=== PATIENT | male | born 1970 | race Caucasian/White ===

== ENCOUNTER 2017-12-07 08:34 | Inpatient (IN) ==
[2017-12-07] MEDS ORDERED: Ondansetron 4 MG/2 ML VIAL IVP ONE (08:48)
[2017-12-07] MEDS ORDERED: 0.9 % Sodium Chloride 1,000 ML IVC ONE (08:48)
[2017-12-07] MEDS ORDERED: *HR* FentaNYL (PF) 100 MCG/2 ML VIAL IVP ONE ×2 (08:50→10:43)
[2017-12-07] MEDS ORDERED: Pantoprazole 40 MG VIAL IVP ONE (08:52)
--- NOTE | 2017-12-07 08:53 | Emergency Department Note ---
Disposition Clinical Impression: Small bowel obstruction, History of Crohn's disease Abdominal pain Qualifiers: Abdominal location: generalized Qualified Code(s): R10.84 - Generalized abdominal pain Vomiting Qualifiers: Vomiting type: unspecified Vomiting Intractability: unspecified Nausea presence : unspecified Qualified Code(s): R11.10 - Vomiting, unspecified Ventral hernia Qualifiers: Obstruction and gangrene presence: with obstruction but without gangrene Qualified Code(s): K43.6 - Other and unspecified ventral hernia with obstruction , without gangrene Pneumonia Qualifiers: Pneumonia type: due to unspecified organism Laterality: left Lung location: lower lobe of lung Qualified Code(s): J18.1 - Lobar pneumonia, unspecified organism Disposition: Admitted As Inpatient Condition: Fair Referrals: Nelson Olivier MD [Primary Care Provider] - Forms: ED Satisfaction Letter, Work/School Release Time of Disposition: 10:03 Abdominal Pain HPI - General Chief Complaint: ED Abdominal Pain Stated Complaint: ABD/Bladder Pain/Vomiting Blood Time Seen by Provider: 12/07/17 08:38 Source: patient Mode of arrival: ambulatory Limitations: no limitations Nursing Notes Reviewed: Yes Vital Signs Reviewed: Yes - History of Present Illness HPI Narrative: 47-year-old male with history of Crohn's with multiple abdominal surgeries in the remote past presents for evaluation of abdominal pain and vomiting. Patient states he has had a colostomy and has had his entire colon removed. States that symptoms started and a half ago with diffuse abdominal pain. Since in the patient's had progressive nausea and vomiting. Since he has vomited multiple times this morning with blood-tinged emesis. Patient's also complaining of more pronounced lower abdominal "bladder pain". Patient denies any hematuria or dysuria. Patient denies any fevers. Reports decreased ostomy drainage. States that his surgeries were performed down in [place]. Patient does not take any pain medication besides Motrin for the abdominal pain and Crohn's. Pain Scale: 10 - Related Data Home Medications Medication Instructions Recorded Confirmed Albuterol Sulfate [Albuterol 0 puff IH Q4HR 12/07/16 12/07/17 Inhaler] Cyanocobalamin (B-12) [Vitamin B12] 1,000 mcg IM Q15D 12/07/16 12/07/17 Cyclobenzaprine HCl 5 mg PO BID PRN 12/07/16 12/07/17 Ibuprofen [Motrin] 800 mg PO Q8HR PRN 12/07/16 12/07/17 Multivitamin [One Daily Essential] 1 each PO DAILY 12/07/16 12/07/17 Omeprazole [PriLOSEC] 40 mg PO DAILY 12/07/16 12/07/17 Venlafaxine HCl [Venlafaxine HCl] 100 mg PO BID 12/07/17 12/07/17 Allergies Allergy/AdvReac Type Severity Reaction Status Date / Time Penicillins Allergy Hives Verified 12/07/16 12:14 All systems ED: reviewed and negative except as stated. Constitutional: Denies: fever Cardiovascular: Denies: chest pain Respiratory: Denies: cough, dyspnea Gastrointestinal: Reports: abdominal pain, nausea, vomiting Abdominal Pain PMH - Past Medical History Medical history: Reports: COPD, kidney stones, other Male Surgical History: Reports: colostomy, orthopedic, other Psychiatric history: Reports: anxiety - Social History Smoking status: Former smoker Alcohol use: Reports: none Drug use: Reports: none Physical Exam - General Limitations: no limitations General appearance: alert, in no apparent distress - Head Head exam: atraumatic, normocephalic, normal inspection - Eye Eye exam: Present: normal appearance - ENT ENT exam: normal exam, mucous membranes moist - Neck Neck exam: Present: normal inspection - Chest Chest inspection: Present: normal inspection, symmetric chest wall rise - Respiratory Respiratory exam: Present: wheezes. Absent: respiratory distress - Cardiovascular Cardiovascular exam: Present: regular rate, normal rhythm. Absent: systolic murmur - Abdominal Exam Abdominal exam: Present: soft, Non-Tender, hyperactive bowel sounds, other ( Functioning ostomy present). Absent: distention, guarding, rebound - Extremities Exam Extremities exam: Present: normal inspection. Absent: pedal edema - Back Exam Back exam: Present: normal inspection - Neurological Exam Neurological exam: Present: alert, oriented X3, CN II-XII intact - Skin Skin exam: Present: warm, dry, intact, normal color Course Course Narrative: Patient seen and examined. Patient ambulated to the treatment area. Patient will get basic labs. Patient also get an EKG, urinalysis. Patient will get a CT scan of the abdomen pelvis. Symptomatic treatment. Disposition pending. - Reevaluation(s) Reevaluation #1: Patient seen resting comfortably. Patient CT scan results pending. Concern for small bowel obstruction. Time: 09:40 - Consultations Consultation #1: Discussed the case with Dr. Paulson who will evaluate the patient. Time: 09:51 Vital Signs Temperature 97.9 F 12/07/17 08:36 Pulse Rate 88 12/07/17 08:36 Respiratory Rate 16 12/07/17 08:36 Blood Pressure 114/80 12/07/17 08:36 O2 Sat by Pulse Oximetry 100 12/07/17 08:36 Temperature 97.9 F 12/07/17 09:00 Pulse Rate 88 12/07/17 09:00 Respiratory Rate 16 12/07/17 09:00 Blood Pressure 114/80 12/07/17 09:00 O2 Sat by Pulse Oximetry 100 12/07/17 09:00 Oxygen Delivery Oxygen Delivery Room Air Abdominal Pain - MDM Narrative Medical decision making narrative: Patient with history of Crohn's require multiple surgeries in the remote past reasons for evaluation of abdominal pain progressing to vomiting. Patient had initial concerns for bowel obstruction. Patient had decreased ostomy output with CT evidence of dilation of small bowel secondary to a ventral hernia. Patient was treated symptomatically with IV fluids antiemetics and pain medication. Patient's labs reviewed shows a normal lactate as well as a leukocytosis. The etiology possibly secondary to pneumonia or intra-abdominal pathology. Patient did get a chest x-ray as well as urinalysis. Possibly reactive given the patient's several bouts of emesis. Patient was started on appropriate antibiotic coverage given any type of GI infection. Discussed the case with surgery who will review the patient's case. Plan of care was discussed with the patient. Patient will be admitted to the hospital service for further evaluation and monitoring. - Lab Data Lab results reviewed: Yes I reviewed the patient's lab results. Result diagrams: 12/07/17 09:15 12/07/17 09:15 Lab Results 12/07/17 12/07/17 12/07/17 Range/Units 08:56 09:15 09:15 WBC 18.3 H (4.3-11.1) K/mcL RBC 5.48 (4.19-5.50) M/mcL Hgb 17.7 H (12.9-16.9) g/dL Hct 48.7 (37.5-50.1) % MCV 88.9 (83.0-100.0) fL MCH 32.3 (28.0-33.3) pg MCHC 36.3 H (31.6-35.5) g/dL RDW 12.3 (11.5-14.5) % Plt Count 252 (140-400) K/mcL MPV 9.9 (9.4-12.4) fL Immature Gran % 0.3 (0-4) % Seg Neutrophils % 85.6 % Lymphocytes % 8.8 % Monocytes % 5.0 % Eosinophils % 0.1 % Basophils % 0.2 % Neutrophils # 15.7 H (1.6-8.9) K/mcL Lymphocytes # 1.6 (0.6-4.6) K/mcL Monocytes # 0.9 (0.0-1.3) K/mcL Eosinophils # 0.0 (0.0-0.6) K/mcL Basophils # 0.0 (0.0-0.2) K/mcL Sodium 136 (136-145) mEq/L Potassium 4.2 (3.5-5.1) mEq/L Chloride 99 (98-107) mEq/L Carbon Dioxide 26 (23-29) mEq/L BUN 15 (6-20) mg/dL Creatinine 0.96 (0.70-1.30) mg/dL Est GFR ( Amer) > 60 (> 60) Est GFR (Non-Af Amer) > 60 (> 60) BUN/Creatinine Ratio 16 (6-26) Glucose 151 H (70-105) mg/dL Calculated Osmolality 286 (280-300) Lactic Acid (0.5-2.2) mmol/L Calcium 10.4 H (8.6-10.3) mg/dL Total Bilirubin 1.1 H (0.3-1.0) mg/dL Direct Bilirubin 0.3 H (0.0-0.2) mg/dL Indirect Bilirubin 0.8 (0.0-1.2) mg/dL AST 20 (13-39) Units/L ALT 27 (7-52) Units/L Alkaline Phosphatase 76 (34-104) Units/L Serum Total Protein 7.9 (6.4-8.9) g/dL Albumin 4.9 (3.5-5.7) g/dL Globulin 3.0 (2.4-3.5) g/dL Albumin/Globulin Ratio 1.6 (1.1-2.2) Lipase 9 L (11-82) Units/L Urine Color Dark Yellow (Yellow) Urine Clarity Clear (Clear) Urine pH 5.5 (5.0-8.0) pH Units Ur Specific [place] > 1.030 H (1.010-1.025) Urine Protein Trace (Neg-Trace) mg/dL Urine Glucose (UA) Normal (Normal) mg/dL Urine Ketones Negative (Negative) mg/dL Urine Blood Negative (Negative) Urine Nitrite Negative (Negative) Urine Bilirubin Negative (Negative) Urine Urobilinogen Normal (Normal) mg/dL Ur Leukocyte Esterase Negative (Negative) Urine Microscopic RBC 5-15 H (0-3) per hpf Urine Microscopic WBC 0-3 (0-3) per hpf Ur Squamous Epith Cells Many H (None-Few) per lpf Urine Bacteria None Seen (None-Few) per hpf Hyaline Casts None Seen (None-Few) per lpf Ur Culture Indicated? NO (NO) 12/07/17 Range/Units 09:15 WBC (4.3-11.1) K/mcL RBC (4.19-5.50) M/mcL Hgb (12.9-16.9) g/dL Hct (37.5-50.1) % MCV (83.0-100.0) fL MCH (28.0-33.3) pg MCHC (31.6-35.5) g/dL RDW (11.5-14.5) % Plt Count (140-400) K/mcL MPV (9.4-12.4) fL Immature Gran % (0-4) % Seg Neutrophils % % Lymphocytes % % Monocytes % % Eosinophils % % Basophils % % Neutrophils # (1.6-8.9) K/mcL Lymphocytes # (0.6-4.6) K/mcL Monocytes # (0.0-1.3) K/mcL Eosinophils # (0.0-0.6) K/mcL Basophils # (0.0-0.2) K/mcL Sodium (136-145) mEq/L Potassium (3.5-5.1) mEq/L Chloride (98-107) mEq/L Carbon Dioxide (23-29) mEq/L BUN (6-20) mg/dL Creatinine (0.70-1.30) mg/dL Est GFR ( Amer) (> 60) Est GFR (Non-Af Amer) (> 60) BUN/Creatinine Ratio (6-26) Glucose (70-105) mg/dL Calculated Osmolality (280-300) Lactic Acid 1.8 (0.5-2.2) mmol/L Calcium (8.6-10.3) mg/dL Total Bilirubin (0.3-1.0) mg/dL Direct Bilirubin (0.0-0.2) mg/dL Indirect Bilirubin (0.0-1.2) mg/dL AST (13-39) Units/L ALT (7-52) Units/L Alkaline Phosphatase (34-104) Units/L Serum Total Protein (6.4-8.9) g/dL Albumin (3.5-5.7) g/dL Globulin (2.4-3.5) g/dL Albumin/Globulin Ratio (1.1-2.2) Lipase (11-82) Units/L Urine Color (Yellow) Urine Clarity (Clear) Urine pH (5.0-8.0) pH Units Ur Specific [place] (1.010-1.025) Urine Protein (Neg-Trace) mg/dL Urine Glucose (UA) (Normal) mg/dL Urine Ketones (Negative) mg/dL Urine Blood (Negative) Urine Nitrite (Negative) Urine Bilirubin (Negative) Urine Urobilinogen (Normal) mg/dL Ur Leukocyte Esterase (Negative) Urine Microscopic RBC (0-3) per hpf Urine Microscopic WBC (0-3) per hpf Ur Squamous Epith Cells (None-Few) per lpf Urine Bacteria (None-Few) per hpf Hyaline Casts (None-Few) per lpf Ur Culture Indicated? (NO) - Radiology Data Radiology results reviewed: Yes I reviewed the patient's radiology results. Abdomen/Pelvis CT 12/07/17 08:48 IMPRESSION: Dilation of small bowel loops possibly related to a ventral hernia to the right of midline in the region of the pelvis. Stable right lower quadrant ileostomy. Status post colectomy. No evidence of free air. Fatty infiltration of the liver. D/ / Merlene Clifford MD / Merlene Clifford MD Interpreting Provider: Merlene Clifford MD Abdomen/Pelvis CT 12/07/17 08:48 IMPRESSION: Dilation of small bowel loops possibly related to a ventral hernia to the right of midline in the region of the pelvis. Stable right lower quadrant ileostomy. Status post colectomy. No evidence of free air. Fatty infiltration of the liver. D/ / Merlene Clifford MD / Merlene Clifford MD Interpreting Provider: Merlene Clifford MD Chest X-Ray 12/07/17 09:33 IMPRESSION: Possible left lower lobe pneumonia D/ / Baudilio Schmidt MD / Baudilio Schmidt MD Interpreting Provider: Baudilio Schmidt MD - EKG Data EKG attestation: Yes I reviewed and interpreted this EKG. EKG shows normal: sinus rhythm Rate: normal Rhythm: NSR [place]/QRS: normal, RBBB Q waves: aVR, v1 Interpretation: no acute changes, nonspecific ST-T wave changes S.B.AZaheer - Jeny.[email or web address] Situation: Demographics Background: Presenting Complaint Assessment: Vital Signs, Course and respsone to treatment, Patient/Family Expectation Recommendation: Barrier(s) to disposition, Recommendation based on pending studies, treatments, or consults S.B.AZaheer Report Given to: Dr. Dwaine Villegas Repor Time: 10:03
[2017-12-07 09:07] LABS: Bilirubin,Urine Negative (Negative); Blood,Urine Negative (Negative); Clarity,Urine Clear (Clear); Color,Urine Dark Yellow (Yellow); Glucose,Urine (UA) Normal (Normal); Ketones,Urine Negative (Negative); Leukocyte Esterase,Urine Negative (Negative); Nitrite,Urine Negative (Negative); PH,Urine 5.5 pH Units (5.0-8.0); Protein,Urine Trace mg/dL (Neg-Trace); Specific Gravity,Urine > 1.030 (1.010-1.025); Urobilinogen,Urine Normal (Normal)
[2017-12-07 09:10] LABS: Bacteria,Urine None Seen per hpf (None-Few); Hyaline Casts,Urine None Seen per lpf (None-Few); Squamous Epithelial Cell,Urine Many per lpf (None-Few); WBC,Urine 0-3 per hpf (0-3)
[2017-12-07 09:29] LABS: Basophils % 0.2 %; Eosinophils % 0.1 %; Hematocrit 48.7 % (37.5-50.1); Hemoglobin 17.7 g/dL (12.9-16.9); Immature Granulocytes % 0.3 % (0-4); Lymphocytes # 1.6 K/mcL (0.6-4.6); Lymphocytes % 8.8 %; Mean Corpuscular HGB Conc 36.3 g/dL (31.6-35.5); Mean Corpuscular Hemoglobin 32.3 pg (28.0-33.3); Mean Corpuscular Volume 88.9 fL (83.0-100.0); Mean Platelet Volume 9.9 fL (9.4-12.4); Monocytes # 0.9 K/mcL (0.0-1.3); Neutrophils # 15.7 K/mcL (1.6-8.9); Platelet Count 252 K/mcL (140-400); Red Blood Count 5.48 M/mcL (4.19-5.50); Red Cell Distribution Width 12.3 % (11.5-14.5); Segmented Neutrophils % 85.6 %
[2017-12-07 09:48] LABS: Alanine Aminotransferase 27 Units/L (7-52); Albumin 4.9 g/dL (3.5-5.7); Alkaline Phosphatase 76 Units/L (34-104); Aspartate Amino Transferase 20 Units/L (13-39); BUN/Creatinine Ratio 16 (6-26); Bilirubin,Direct 0.3 mg/dL (0.0-0.2); Bilirubin,Indirect 0.8 mg/dL (0.0-1.2); Bilirubin,Total 1.1 mg/dL (0.3-1.0); Blood Urea Nitrogen 15 mg/dL (6-20); Calcium 10.4 mg/dL (8.6-10.3); Carbon Dioxide 26 mEq/L (23-29); Chloride 99 mEq/L (98-107); Glucose 151 mg/dL (70-105); Osmolality,Calculated 286 (280-300); Potassium 4.2 mEq/L (3.5-5.1); Sodium 136 mEq/L (136-145); Total Protein 7.9 g/dL (6.4-8.9); eGFR For African Americans > 60 (> 60); eGFR For Non-African Americans > 60 (> 60)
[2017-12-07 09:49] LABS: Albumin/Globulin Ratio 1.6 (1.1-2.2); Lipase 9 Units/L (11-82)
--- NOTE | 2017-12-07 09:53 | Emergency Department Note ---
Disposition Clinical Impression: Small bowel obstruction Abdominal pain Qualifiers: Abdominal location: generalized Qualified Code(s): R10.84 - Generalized abdominal pain Vomiting Qualifiers: Vomiting type: unspecified Vomiting Intractability: unspecified Nausea presence : unspecified Qualified Code(s): R11.10 - Vomiting, unspecified Disposition: Admitted As Inpatient Referrals: Nelson Olivier MD [Primary Care Provider] - Forms: ED Satisfaction Letter, Work/School Release General Adult HPI - General Chief complaint: ED Abdominal Pain Stated complaint: ABD/Bladder Pain/Vomiting Blood Time Seen by Provider: 12/07/17 08:38 Source: patient Mode of arrival: ambulatory Limitations: no limitations - History of Present Illness Pain Scale: 10 - Related Data Home Medications Medication Instructions Recorded Confirmed Albuterol Sulfate [Albuterol 0 puff IH Q4HR 12/07/16 10/16/17 Inhaler] Buspirone HCl [Buspar] 10 mg PO BID 12/07/16 10/16/17 Cyanocobalamin (B-12) [Vitamin B12] 1,000 mcg IM Q15D 12/07/16 10/16/17 Cyclobenzaprine HCl 5 mg PO BID PRN 12/07/16 10/16/17 Ibuprofen [Motrin] 800 mg PO Q8HR PRN 12/07/16 10/16/17 Multivitamin [One Daily Essential] 1 each PO DAILY 12/07/16 10/16/17 Omeprazole [PriLOSEC] 40 mg PO DAILY 12/07/16 10/16/17 Allergies Allergy/AdvReac Type Severity Reaction Status Date / Time Penicillins Allergy Hives Verified 12/07/16 12:14 Constitutional: Denies: fever Cardiovascular: Denies: chest pain Respiratory: Denies: cough, dyspnea Gastrointestinal: Reports: abdominal pain, nausea, vomiting Past Medical History - Past Medical History Medical history: Reports: COPD, kidney stones, other Psychiatric history: Reports: anxiety - Social History Smoking Status: Former smoker Smokeless Tobacco Status: No Alcohol use: Reports: none Drug use: Reports: none Physical Exam - General Limitations: no limitations General appearance: alert, in no apparent distress Course Vital Signs Temperature 97.9 F 12/07/17 08:36 Pulse Rate 88 12/07/17 08:36 Respiratory Rate 16 12/07/17 08:36 Blood Pressure 114/80 12/07/17 08:36 O2 Sat by Pulse Oximetry 100 12/07/17 08:36 Temperature 97.9 F 12/07/17 09:00 Pulse Rate 88 12/07/17 09:00 Respiratory Rate 16 12/07/17 09:00 Blood Pressure 114/80 12/07/17 09:00 O2 Sat by Pulse Oximetry 100 12/07/17 09:00 Oxygen Delivery Oxygen Delivery Room Air Medical Decision Making - Lab Data Result diagrams: 12/07/17 09:15 12/07/17 09:15 Lab Results 12/07/17 12/07/17 12/07/17 Range/Units 08:56 09:15 09:15 WBC 18.3 H (4.3-11.1) K/mcL RBC 5.48 (4.19-5.50) M/mcL Hgb 17.7 H (12.9-16.9) g/dL Hct 48.7 (37.5-50.1) % MCV 88.9 (83.0-100.0) fL MCH 32.3 (28.0-33.3) pg MCHC 36.3 H (31.6-35.5) g/dL RDW 12.3 (11.5-14.5) % Plt Count 252 (140-400) K/mcL MPV 9.9 (9.4-12.4) fL Immature Gran % 0.3 (0-4) % Seg Neutrophils % 85.6 % Lymphocytes % 8.8 % Monocytes % 5.0 % Eosinophils % 0.1 % Basophils % 0.2 % Neutrophils # 15.7 H (1.6-8.9) K/mcL Lymphocytes # 1.6 (0.6-4.6) K/mcL Monocytes # 0.9 (0.0-1.3) K/mcL Eosinophils # 0.0 (0.0-0.6) K/mcL Basophils # 0.0 (0.0-0.2) K/mcL Sodium 136 (136-145) mEq/L Potassium 4.2 (3.5-5.1) mEq/L Chloride 99 (98-107) mEq/L Carbon Dioxide 26 (23-29) mEq/L BUN 15 (6-20) mg/dL Creatinine 0.96 (0.70-1.30) mg/dL Est GFR ( Amer) > 60 (> 60) Est GFR (Non-Af Amer) > 60 (> 60) BUN/Creatinine Ratio 16 (6-26) Glucose 151 H (70-105) mg/dL Calculated Osmolality 286 (280-300) Lactic Acid (0.5-2.2) mmol/L Calcium 10.4 H (8.6-10.3) mg/dL Total Bilirubin 1.1 H (0.3-1.0) mg/dL Direct Bilirubin 0.3 H (0.0-0.2) mg/dL Indirect Bilirubin 0.8 (0.0-1.2) mg/dL AST 20 (13-39) Units/L ALT 27 (7-52) Units/L Alkaline Phosphatase 76 (34-104) Units/L Serum Total Protein 7.9 (6.4-8.9) g/dL Albumin 4.9 (3.5-5.7) g/dL Globulin 3.0 (2.4-3.5) g/dL Albumin/Globulin Ratio 1.6 (1.1-2.2) Lipase 9 L (11-82) Units/L Urine Color Dark Yellow (Yellow) Urine Clarity Clear (Clear) Urine pH 5.5 (5.0-8.0) pH Units Ur Specific [place] > 1.030 H (1.010-1.025) Urine Protein Trace (Neg-Trace) mg/dL Urine Glucose (UA) Normal (Normal) mg/dL Urine Ketones Negative (Negative) mg/dL Urine Blood Negative (Negative) Urine Nitrite Negative (Negative) Urine Bilirubin Negative (Negative) Urine Urobilinogen Normal (Normal) mg/dL Ur Leukocyte Esterase Negative (Negative) Urine Microscopic RBC 5-15 H (0-3) per hpf Urine Microscopic WBC 0-3 (0-3) per hpf Ur Squamous Epith Cells Many H (None-Few) per lpf Urine Bacteria None Seen (None-Few) per hpf Hyaline Casts None Seen (None-Few) per lpf Ur Culture Indicated? NO (NO) 12/07/17 Range/Units 09:15 WBC (4.3-11.1) K/mcL RBC (4.19-5.50) M/mcL Hgb (12.9-16.9) g/dL Hct (37.5-50.1) % MCV (83.0-100.0) fL MCH (28.0-33.3) pg MCHC (31.6-35.5) g/dL RDW (11.5-14.5) % Plt Count (140-400) K/mcL MPV (9.4-12.4) fL Immature Gran % (0-4) % Seg Neutrophils % % Lymphocytes % % Monocytes % % Eosinophils % % Basophils % % Neutrophils # (1.6-8.9) K/mcL Lymphocytes # (0.6-4.6) K/mcL Monocytes # (0.0-1.3) K/mcL Eosinophils # (0.0-0.6) K/mcL Basophils # (0.0-0.2) K/mcL Sodium (136-145) mEq/L Potassium (3.5-5.1) mEq/L Chloride (98-107) mEq/L Carbon Dioxide (23-29) mEq/L BUN (6-20) mg/dL Creatinine (0.70-1.30) mg/dL Est GFR ( Amer) (> 60) Est GFR (Non-Af Amer) (> 60) BUN/Creatinine Ratio (6-26) Glucose (70-105) mg/dL Calculated Osmolality (280-300) Lactic Acid 1.8 (0.5-2.2) mmol/L Calcium (8.6-10.3) mg/dL Total Bilirubin (0.3-1.0) mg/dL Direct Bilirubin (0.0-0.2) mg/dL Indirect Bilirubin (0.0-1.2) mg/dL AST (13-39) Units/L ALT (7-52) Units/L Alkaline Phosphatase (34-104) Units/L Serum Total Protein (6.4-8.9) g/dL Albumin (3.5-5.7) g/dL Globulin (2.4-3.5) g/dL Albumin/Globulin Ratio (1.1-2.2) Lipase (11-82) Units/L Urine Color (Yellow) Urine Clarity (Clear) Urine pH (5.0-8.0) pH Units Ur Specific [place] (1.010-1.025) Urine Protein (Neg-Trace) mg/dL Urine Glucose (UA) (Normal) mg/dL Urine Ketones (Negative) mg/dL Urine Blood (Negative) Urine Nitrite (Negative) Urine Bilirubin (Negative) Urine Urobilinogen (Normal) mg/dL Ur Leukocyte Esterase (Negative) Urine Microscopic RBC (0-3) per hpf Urine Microscopic WBC (0-3) per hpf Ur Squamous Epith Cells (None-Few) per lpf Urine Bacteria (None-Few) per hpf Hyaline Casts (None-Few) per lpf Ur Culture Indicated? (NO) Attestation Statement - Attestation Attestation: I examined this patient and my medical decision-making was reviewed with the Resident Physician. I agree with the documented findings, disposition and treatment plan as described except to the extent set forth below. 47 year old male prsentes to the ED with complaints of abdominal pain and states that he has a colostomy secondary to crohns disease and now is expereincin decreased bowel secretions and thinks that he may have developed a smal bowel obstruction as this is how he has presented in the past. Richard SALMERON confrims and it appears he has an elevated WBC. Surgery will see in consult and we will admit to medicine.
[2017-12-07] MEDS ORDERED: MetroNIDAZOLE 500 MG/100 ML 500 MG/100 ML BAG IVPB ONE (10:02)
[2017-12-07] MEDS ORDERED: Naloxone 0.4 MG/ML INJ IVP PRN (10:19)
[2017-12-07] MEDS ORDERED: Levofloxacin 750 MG/150 ML 750 MG/150 ML BAG IVPB ONE ×2 (10:21→10:40)
--- NOTE | 2017-12-07 11:19 | Internal Med History&Physical ---
Date of Encounter: 12/07/17 Time of Encounter: 11:15 Internal Medicine - H&P: HPI Chief complaint: abdominal pain of 2 days duration, nausea and vomiting History of present illness: Mr. Paige is a 47 year old male with pmh of Crohn's disease s/p multiple surgeries with ostomy in place came in with complaints of abdominal pain of 2 days duation accompanied with low output from ileostomy and nausea and vomiting since 1 am. Pain is sharp, located in right lower quadrant of the abdomen and has been constant for about 2 days. Has had chills, sweats but denies fevers. Has had incresed coughing as well. Denies any other acute symptoms. CT abdomen in ER showed multiple dilated bowel loops Past Med Surg Social Fam HX - Past Medical History Medical history: COPD, kidney stones, other Additional medical history: crohnes Psychiatric history: anxiety - Past Surgical History Additional surgical history: ileostomy - Social History Smoking Status: Former smoker Smokeless Tobacco Status: No Alcohol use: none Drug use: none Internal Medicine - H&P: Meds Albuterol Sulfate [Albuterol Inhaler] 0 puff IH Q4HR 12/07/16 [History] Cyanocobalamin (B-12) [Vitamin B12] 1,000 mcg IM Q15D 12/07/16 [History] Cyclobenzaprine HCl 5 mg PO BID PRN 12/07/16 [History] Ibuprofen [Motrin] 800 mg PO Q8HR PRN 12/07/16 [History] Multivitamin [One Daily Essential] 1 each PO DAILY 12/07/16 [History] Omeprazole [PriLOSEC] 40 mg PO DAILY 12/07/16 [History] Venlafaxine HCl [Venlafaxine HCl] 100 mg PO BID 12/07/17 [History] 3 Allergy/AdvReac Type Severity Reaction Status Date / Time Penicillins Allergy Hives Verified 12/07/16 12:14 All Systems PM: A 10-system review of systems was performed and is negative for pertinent findings except as documented above in the HPI. - Constitutional Constitutional: no chills, no fever(s), no night sweats - EENT Eyes: no change in vision, no discharge, no pain, no photophobia Ears: no ear discharge, no ear pain, no tinnitus Nose, mouth and throat: no dysphagia, no nasal discharge, no neck pain, no sore throat - Cardiovascular Cardiovascular ROS IM: no chest pain, no diaphoresis, no dyspnea, no lightheadedness, no palpitations, no syncope - Respiratory Respiratory: no cough, no dyspnea, no wheezing, no excessive phlegm production - Gastrointestinal Gastrointestinal: no abdominal pain, no diarrhea, no hematemesis, no hematochezia, no melena, no nausea, no vomiting - Musculoskeletal Musculoskeletal ROS IM: no numbness, no tingling - Integumentary Integumentary IM: no rash, no unusual bruising - Neurological Neurological ROS: no confusion, no convulsions, no focal weakness, no numbness, no tingling, no tremor(s) - Hematologic/Lymphatic Hematologic/Lymphatic: no easy bruising - Constitutional Vitals: Temp Pulse Resp BP Pulse Ox 97.9 F 88 18 115/72 100 12/07/17 09:00 12/07/17 09:00 12/07/17 11:02 12/07/17 11:02 12/07/17 09:00 - Head Head exam: Present: atraumatic, normocephalic - Eye Eye exam: Present: PERRL, conjuntiva pink, sclera anicteric Pupils: Present: PERRL - Neck Neck exam general surgery: Present: supple, trachea midline. Absent: lymphadenopathy - Respiratory Respiratory exam: Present: CTAB. Absent: accessory muscle use, rales, rhonchi, wheezes - Cardiovascular Cardiovascular exam: Present: RRR, +S1, +S2. Absent: diastolic murmur, gallop, rubs, systolic murmur - GI/Abdominal GI/Abdominal exam: Present: normal bowel sounds, soft, tenderness, no peritoneal signs. Absent: distended Additional comments: Diffuse abdominal tenderness, ostomy bag in place - Extremities Exam Extremities exam: Present: warm, radial pulses palpable and symmetrical. Absent : calf tenderness, cyanotic, pedal edema - Neurological Exam Neurological exam: Present: CN II-XII intact, oriented X3, no focal deficits. Absent: pronater drift, facial droop, speech deficit - Skin Skin exam: Present: dry, intact Internal Med - H&P Results - Labs CBC & Chem 7: 12/07/17 09:15 12/07/17 09:15 - Assessment and plan (1) Small bowel obstruction Current Visit: Yes Status: Acute Assessment and plan: Ct abdomen showed dilation of small bowel loops related to ventral hernia. Keep NPO, IV fluids, pain control. Surgery has been consulted (2) Sepsis Current Visit: Yes Status: Acute Assessment and plan: Sepsis likely 2/2 to pneumonia vs intrabdominal infection. WBC was 18.3 ON levaquin and flagyl. Follow up cultures Qualifiers: Sepsis type: sepsis due to unspecified organism Qualified Code(s): A41.9 - Sepsis, unspecified organism (3) Pneumonia Current Visit: Yes Status: Acute Assessment and plan: On levaquin and flagyl Qualifiers: Pneumonia type: due to unspecified organism Laterality: left Lung location: lower lobe of lung Qualified Code(s): J18.1 - Lobar pneumonia, unspecified organism (4) History of Crohn's disease Current Visit: Yes Status: Acute Assessment and plan: Continue home meds (5) DVT prophylaxis Current Visit: Yes Status: Acute Assessment and plan: heparin sc - Time Spent With Patient Total time spent is greater than 50% in coordination of care (as documented) at patient's floor/unit and/or counseling patient:
[2017-12-07] MEDS: 0.9 % Sodium Chloride 1,000 ML IVC SCH ×2 (12:04→21:44)
[2017-12-07] MEDS: *HR* Morphine 2 MG/ML SYRINGE IVP PRN ×3 (12:05→21:41)
[2017-12-07] MEDS: Ondansetron 4 MG/2 ML VIAL IVP PRN ×2 (15:02→23:26)
[2017-12-07] MEDS: MetroNIDAZOLE 500 MG/100 ML 500 MG/100 ML BAG IVPB SCH ×2 (15:02→23:23)
[2017-12-07] MEDS ORDERED: Piperacillin/Tazobactam 3.375 GM in 0.9 % Sodium Chloride Mini Bag 100 ML IVPB SCH (16:00)
[2017-12-07] MEDS: *HR* Heparin 5,000 UNIT/ML VIAL SQ SCH (18:21)
[2017-12-07] MEDS: traMADol 50 MG TABLET PO PRN (18:21)
[2017-12-07] MEDS: *HR* Promethazine 25 MG/ML VIAL IVP PRN (20:33)
--- NOTE | 2017-12-07 22:31 | General Surgery Consult Note ---
Date of Encounter: 12/07/17 Time of Encounter: 21:00 Assessment and Plan (1) Small bowel obstruction Current Visit: Yes Status: Acute 47M h/o Crohn's s/p total proctocolectomy with end ileostomy now with decreased ileostomy output; with patient's multiple surgeries, I would be hesitant about doing surgery if needed due to the expected complexity. IN such a case ,i would recommend transfer to [facility] for further care No acute surgery general surgery will sign off; please call with any new questions or concerns History of Present Illness Consult date: 12/07/17 Reason for consult: other (ventral hernia) History of present illness: 47M h/o crohn's s/p total proctocolectomy with end ileostomy, multiple abdominal surgeries now with decreased ileostomy output; CT scan was obtained demonstrating concern for hernia; no evidence ischemia. patient has PO intolerance and is currently vomiting; no other systemic symptoms; Past Med Surg Social Fam HX - Past Medical History Medical history: COPD, kidney stones, other Additional medical history: crohnes Psychiatric history: anxiety - Past Surgical History Additional surgical history: ileostomy - Social History Smoking Status: Former smoker Smokeless Tobacco Status: No Alcohol use: none Drug use: none - Additional Family History Additional family history: non contributory Medications and Allergies Albuterol Sulfate [Albuterol Inhaler] 0 puff IH Q4HR 12/07/16 [History] Cyanocobalamin (B-12) [Vitamin B12] 1,000 mcg IM Q15D 12/07/16 [History] Cyclobenzaprine HCl 5 mg PO BID PRN 12/07/16 [History] Ibuprofen [Motrin] 800 mg PO Q8HR PRN 12/07/16 [History] Multivitamin [One Daily Essential] 1 each PO DAILY 12/07/16 [History] Omeprazole [PriLOSEC] 40 mg PO DAILY 12/07/16 [History] Venlafaxine HCl [Venlafaxine HCl] 100 mg PO BID 12/07/17 [History] 3 Allergy/AdvReac Type Severity Reaction Status Date / Time Penicillins Allergy Hives Verified 12/07/16 12:14 Review of Systems All systems PM: The remainder of the systems were reviewed and are negative General Surgery Exam Initial Vital Signs Temp Pulse Resp BP Pulse Ox 97.9 F 88 16 114/80 100 12/07/17 08:36 12/07/17 08:36 12/07/17 08:36 12/07/17 08:36 12/07/17 08:36 - General physical appearance no distress - Eyes normal ocular movement - ENT normocephalic - Neck no lymphadectomy - Respiratory normal expansion, normal respiratory effort - Cardiovascular Cardiovascular exam: Present: RRR - Abdomen Abdomen general surgery: Present: soft, non tender (non distended on my exam; ) - Integumentary Integumentary general surgery: Present: warm and dry - Neurologic Present: CN 2-12 grossly intact - Musculoskeletal Present: normal posture - Psychiatric Psychiatric general surgery: Present: A&Ox3 Exam Initial Vital Signs Temp Pulse Resp BP Pulse Ox 97.9 F 88 16 114/80 100 12/07/17 08:36 12/07/17 08:36 12/07/17 08:36 12/07/17 08:36 12/07/17 08:36 Results - Labs 12/07/17 09:15 12/07/17 09:15 Abnormal lab results WBC 18.3 K/mcL (4.3-11.1) H 12/07/17 09:15 Hgb 17.7 g/dL (12.9-16.9) H 12/07/17 09:15 MCHC 36.3 g/dL (31.6-35.5) H 12/07/17 09:15 Neutrophils # 15.7 K/mcL (1.6-8.9) H 12/07/17 09:15 Glucose 151 mg/dL (70-105) H 12/07/17 09:15 POC Glucose 127 mg/dL (70-99) H 12/07/17 16:22 Calcium 10.4 mg/dL (8.6-10.3) H 12/07/17 09:15 Total Bilirubin 1.1 mg/dL (0.3-1.0) H 12/07/17 09:15 Direct Bilirubin 0.3 mg/dL (0.0-0.2) H 12/07/17 09:15 Lipase 9 Units/L (11-82) L 12/07/17 09:15 Ur Specific [place] > 1.030 (1.010-1.025) H 12/07/17 08:56 Urine Microscopic RBC 5-15 per hpf (0-3) H 12/07/17 08:56 Ur Squamous Epith Cells Many per lpf (None-Few) H 12/07/17 08:56 All other labs normal. - Imaging CT scan - abdomen: report reviewed, image reviewed CT scan - pelvis: report reviewed, image reviewed Consult Discharge Plan - Plan Referrals: Nelson Olivier MD [Primary Care Provider] -
[2017-12-08] MEDS: traMADol 50 MG TABLET PO PRN ×2 (01:16→13:17)
[2017-12-08] MEDS: *HR* Morphine 2 MG/ML SYRINGE IVP PRN ×6 (02:10→23:40)
[2017-12-08] MEDS: *HR* Heparin 5,000 UNIT/ML VIAL SQ SCH ×2 (05:24→16:24)
[2017-12-08] MEDS ORDERED: 0.9 % Sodium Chloride 1,000 ML ONE (07:39)
[2017-12-08] MEDS: Levofloxacin 750 MG/150 ML 750 MG/150 ML BAG IVPB SCH (07:46)
[2017-12-08] MEDS: MetroNIDAZOLE 500 MG/100 ML 500 MG/100 ML BAG IVPB SCH ×3 (07:47→23:40)
[2017-12-08] MEDS: Multivit/Ca/Min/Fe/FA 1 TAB TABLET PO SCH (07:48)
[2017-12-08 08:53] LABS: Basophils % 0.2 %; Eosinophils # 0.1 K/mcL (0.0-0.6); Hematocrit 42.3 % (37.5-50.1); Immature Granulocytes % 0.2 % (0-4); Lymphocytes # 1.7 K/mcL (0.6-4.6); Mean Corpuscular HGB Conc 33.6 g/dL (31.6-35.5); Mean Corpuscular Hemoglobin 30.9 pg (28.0-33.3); Mean Platelet Volume 10.2 fL (9.4-12.4); Monocytes % 11.8 %; Neutrophils # 5.8 K/mcL (1.6-8.9); Platelet Count 197 K/mcL (140-400); Red Cell Distribution Width 12.8 % (11.5-14.5); Segmented Neutrophils % 66.8 %
[2017-12-08 08:59] LABS: Hemoglobin 14.2 g/dL (12.9-16.9)
[2017-12-08 09:03] LABS: BUN/Creatinine Ratio 14 (6-26); Blood Urea Nitrogen 13 mg/dL (6-20); Calcium 8.8 mg/dL (8.6-10.3); Carbon Dioxide 30 mEq/L (23-29); Chloride 106 mEq/L (98-107); Glucose 118 mg/dL (70-105); Magnesium 1.8 mg/dL (1.6-2.6); Osmolality,Calculated 289 (280-300); Potassium 4.1 mEq/L (3.5-5.1); Sodium 139 mEq/L (136-145); eGFR For African Americans > 60 (> 60); eGFR For Non-African Americans > 60 (> 60)
[2017-12-08] MEDS: 0.9 % Sodium Chloride w KCl 20 MEQ/1,000 ML MLS IVC SCH (11:11)
--- NOTE | 2017-12-08 21:01 | Internal Med Progress Note ---
Date of Encounter: 12/08/17 Time of Encounter: 20:59 - Assessment and plan (1) Small bowel obstruction Current Visit: Yes Status: Acute (2) Ventral hernia with bowel obstruction Current Visit: Yes Status: Acute (3) Crohn disease Current Visit: Yes Status: Acute Qualifiers: Gastrointestinal tract location: unspecified location Digestive disease complication type: other complication Qualified Code(s): K50.918 - Crohn's disease, unspecified, with other complication (4) GERD (gastroesophageal reflux disease) Current Visit: Yes Status: Chronic Qualifiers: Esophagitis presence: esophagitis presence not specified Qualified Code(s) : K21.9 - Gastro-esophageal reflux disease without esophagitis - Time Spent With Patient Total time spent is greater than 50% in coordination of care (as documented) at patient's floor/unit and/or counseling patient: 25 - 35 minutes - Subjective Interval history: .. The patient feels better. He is on nothing by mouth diet. His abdominal pain/ distention subsided. He continues to have off and on nausea but no vomiting. He takes when necessary antiemetics. There is only very minimal output through his ileostomy bag. Denies chest pain. Denies difficulty breathing, coughing and wheezing. She has normal urination. OBJECTIVE: .. Skin: Free of rash and discoloration. ENMT: Oral/pharyngeal mucosa is normal in appearance. Eyes: Sclera is white. There is no discharge from eyes. Respiratory: Normal breath sounds; no crackles or wheezes. CV: Heart is regular; no gallop or murmur. GI: Abdomen is soft. It is mildly tender in all 4 quadrants. Ileostomy bag is seen in right lower quadrant. One can see multiple scars on the abdominal wall. There is no palpable mass or visceromegaly. Neuro: There is no focal deficits. ASSESSMENT AND PLAN: .. Small bowel obstruction/suspected the ventral hernia with bowel obstruction/ Crohn's disease with remission. The patient had a total proctocolectomy with end ileostomy in the past. He had total of 37 of abdominal/other surgeries. data integrity consultant is hesitant about doing another surgery due to high complexity of the case. We feel, that we may need to transfer this patient to [facility] for further careif we do not see any output in his ileostomy bag. It may also happen for some other circumstances. The patient gets normal [place] with the addition of potassium chloride. We will continue when necessary antiemetics. We will start clear liquids. GERD. Under control. We will continue Prilosec. I doubt that this patient suffers from pneumonia. CT of abdomen/pelvis included lower portions of his chestdid not show any pneumonic infiltrates there. We will repeat chest x-ray. - Constitutional Vitals: Temp Pulse Resp BP Pulse Ox 98.3 F 97 16 128/84 97 12/08/17 14:56 12/08/17 14:56 12/08/17 19:43 12/08/17 14:56 12/08/17 19:43 Internal Medicine: Result - Labs CBC & Chem 7: 12/08/17 08:08 12/08/17 08:08 Labs: Short CBC 12/08/17 Range/Units 08:08 WBC 8.7 D (4.3-11.1) K/mcL Hgb 14.2 D (12.9-16.9) g/dL Hct 42.3 (37.5-50.1) % Plt Count 197 (140-400) K/mcL Neutrophils # 5.8 (1.6-8.9) K/mcL BMP 12/08/17 08:08 Sodium 139 Potassium 4.1 Chloride 106 Carbon Dioxide 30 H BUN 13 Creatinine 0.94 Glucose 118 H Calcium 8.8 - Impressions Impressions Chest X-Ray 12/08/17 14:49 IMPRESSION: Linear left basilar atelectasis. Otherwise unremarkable chest. No infiltrate identified. D/ / Nelson Kern MD / Nelson Kern MD Interpreting Provider: Nelson Kern MD Consult Discharge Plan - Plan Referrals: Nelson Olivier MD [Primary Care Provider] -
[2017-12-09] MEDS: *HR* Morphine 2 MG/ML SYRINGE IVP PRN ×3 (03:57→12:33)
[2017-12-09 04:36] LABS: Basophils % 0.5 %; Eosinophils # 0.2 K/mcL (0.0-0.6); Eosinophils % 2.5 %; Hematocrit 40.1 % (37.5-50.1); Hemoglobin 13.3 g/dL (12.9-16.9); Immature Granulocytes % 0.2 % (0-4); Lymphocytes # 1.7 K/mcL (0.6-4.6); Lymphocytes % 26.7 %; Mean Corpuscular HGB Conc 33.2 g/dL (31.6-35.5); Mean Corpuscular Hemoglobin 30.5 pg (28.0-33.3); Mean Platelet Volume 10.4 fL (9.4-12.4); Monocytes # 0.7 K/mcL (0.0-1.3); Monocytes % 10.2 %; Neutrophils # 3.8 K/mcL (1.6-8.9); Platelet Count 182 K/mcL (140-400); Red Blood Count 4.36 M/mcL (4.19-5.50); Red Cell Distribution Width 12.5 % (11.5-14.5); Segmented Neutrophils % 59.9 %
[2017-12-09 04:54] LABS: BUN/Creatinine Ratio 16 (6-26); Blood Urea Nitrogen 14 mg/dL (6-20); Calcium 8.9 mg/dL (8.6-10.3); Carbon Dioxide 27 mEq/L (23-29); Chloride 108 mEq/L (98-107); Glucose 93 mg/dL (70-105); Magnesium 1.7 mg/dL (1.6-2.6); Osmolality,Calculated 290 (280-300); Potassium 3.9 mEq/L (3.5-5.1); Sodium 140 mEq/L (136-145); eGFR For African Americans > 60 (> 60); eGFR For Non-African Americans > 60 (> 60)
[2017-12-09] MEDS: 0.9 % Sodium Chloride w KCl 20 MEQ/1,000 ML MLS IVC SCH ×2 (08:30→21:36)
[2017-12-09] MEDS: MetroNIDAZOLE 500 MG/100 ML 500 MG/100 ML BAG IVPB SCH (08:32)
[2017-12-09] MEDS: Multivit/Ca/Min/Fe/FA 1 TAB TABLET PO SCH (08:34)
[2017-12-09] MEDS: Levofloxacin 750 MG/150 ML 750 MG/150 ML BAG IVPB SCH (08:40)
[2017-12-09] MEDS: *HR* Heparin 5,000 UNIT/ML VIAL SQ SCH (08:45)
[2017-12-09] MEDS: *HR* Promethazine 25 MG/ML VIAL IVP PRN ×2 (08:49→16:19)
[2017-12-09] MEDS: Ondansetron 4 MG/2 ML VIAL IVP PRN ×2 (12:39→22:33)
--- NOTE | 2017-12-09 14:54 | Electrocardiograph Report ---
[place] [id number] Test Date: 2017-12-07 Pat Name: Dionte Paige Department: 102 Room: 3A48 Gender: M Editor Producer: [facility] : [id number] Requested By: Darrion Merrill Order Number: [id number] Reading MD: Bertram Higgins Measurements Intervals [place] Rate: 74 P: 53 W[place]: 151 QRS: 62 QRSD: 118 T: 64 QT: 374 QTc: 401 Interpretive Statements SINUS RHYTHM INCOMPLETE RIGHT BUNDLE BRANCH BLOCK Electronically Signed On 12-09-2017 14:53:20 EDT by Bertram Higgins
[2017-12-09] MEDS ORDERED: traMADol 50 MG TABLET PO PRN (15:12)
[2017-12-09] MEDS: OXYCODONE Oral CONC 10 MG/0.5 ML ORAL.SYG SL PRN ×2 (16:19→22:28)
--- NOTE | 2017-12-09 22:33 | Internal Med Progress Note ---
Date of Encounter: 12/09/17 Time of Encounter: 19:00 - Assessment and plan (1) Small bowel obstruction Current Visit: Yes Status: Acute (2) Ventral hernia with bowel obstruction Current Visit: Yes Status: Acute (3) Crohn disease Current Visit: Yes Status: Acute Qualifiers: Gastrointestinal tract location: unspecified location Digestive disease complication type: other complication Qualified Code(s): K50.918 - Crohn's disease, unspecified, with other complication (4) GERD (gastroesophageal reflux disease) Current Visit: Yes Status: Chronic Qualifiers: Esophagitis presence: esophagitis presence not specified Qualified Code(s) : K21.9 - Gastro-esophageal reflux disease without esophagitis - Time Spent With Patient Total time spent is greater than 50% in coordination of care (as documented) at patient's floor/unit and/or counseling patient: 25 - 35 minutes - Subjective Interval history: .. After starting him on clear liquids he developed nausea and some abdominal discomfort. He vomited on one occasion today afternoon. We cannot see any stool in his ileostomy bag. Denies chest pain. Denies difficulty breathing, coughing and wheezing. She has normal urination. OBJECTIVE: .. Skin: Free of rash and discoloration. ENMT: Oral/pharyngeal mucosa is normal in appearance. Eyes: Sclera is white. There is no discharge from eyes. Respiratory: Normal breath sounds; no crackles or wheezes. CV: Heart is regular; no gallop or murmur. GI: Abdomen is soft. It is mildly tender in all 4 quadrants. Ileostomy bag is seen in right lower quadrant. One can see multiple scars on the abdominal wall. There is no palpable mass or visceromegaly. Neuro: There is no focal deficits. ASSESSMENT AND PLAN: .. Small bowel obstruction/suspected ventral hernia with bowel obstruction/Crohn's disease with remission. The patient had a total proctocolectomy with end ileostomy in the past. He had total of 37 of abdominal/other surgeries. integrity consultant is hesitant about doing another surgery due to high complexity of the case. We will keep on clear liquids. We will repeat a KUB. We will likely have to transfer him to [facility] or a similar place, if he does not do any better. The patient gets normal saline with the addition of potassium chloride. We will continue when necessary antiemetics. GERD. Under control. We will continue Prilosec. I doubt that he has pneumonia. He has a linear left basilar atelectasis on the chest x-ray from yesterday. We will discontinue antibiotics. - Constitutional Vitals: Temp Pulse Resp BP Pulse Ox 98.1 F 75 16 105/76 97 12/09/17 19:09 12/09/17 19:09 12/09/17 19:41 12/09/17 19:12/09/17 19:41 Internal Medicine: Result - Labs CBC & Chem 7: 12/09/17 03:50 12/09/17 03:50 Labs: Short CBC 12/09/17 Range/Units 03:50 WBC 6.4 (4.3-11.1) K/mcL Hgb 13.3 (12.9-16.9) g/dL Hct 40.1 (37.5-50.1) % Plt Count 182 (140-400) K/mcL Neutrophils # 3.8 (1.6-8.9) K/mcL BMP 12/09/17 03:50 Sodium 140 Potassium 3.9 Chloride 108 H Carbon Dioxide 27 BUN 14 Creatinine 0.88 Glucose 93 Calcium 8.9 Consult Discharge Plan - Plan Referrals: Nelson Olivier MD [Primary Care Provider] -
[2017-12-10] MEDS: Ondansetron 4 MG/2 ML VIAL IVP PRN ×3 (04:21→20:31)
[2017-12-10] MEDS: *HR* Promethazine 25 MG/ML VIAL IVP PRN (06:41)
[2017-12-10] MEDS: OXYCODONE Oral CONC 10 MG/0.5 ML ORAL.SYG SL PRN ×2 (06:41→18:27)
[2017-12-10] MEDS: *HR* Heparin 5,000 UNIT/ML VIAL SQ SCH ×3 (10:05→18:29)
[2017-12-10] MEDS: Multivit/Ca/Min/Fe/FA 1 TAB TABLET PO SCH (10:08)
[2017-12-10] MEDS: 0.9 % Sodium Chloride w KCl 20 MEQ/1,000 ML MLS IVC SCH (10:09)
--- NOTE | 2017-12-10 11:00 | Discharge Summary ---
- NOTES TO OUTPATIENT PROVIDER Notes to Outpatient Provider: Nothing to follow-up Date of Encounter: 12/10/17 Time of Encounter: 10:00 - Discharge Diagnosis (1) Small bowel obstruction Priority: Primary Status: Acute (2) History of Crohn's disease Priority: Secondary Status: Acute (3) Pneumonia Priority: Secondary Status: Resolved Qualifiers: Pneumonia type: due to unspecified organism Laterality: left Lung location: lower lobe of lung Qualified Code(s): J18.1 - Lobar pneumonia, unspecified organism (4) Sepsis Priority: Secondary Status: Resolved Qualifiers: Sepsis type: sepsis due to unspecified organism Qualified Code(s): A41.9 - Sepsis, unspecified organism (5) DVT prophylaxis Priority: Secondary Status: Acute Hospital course: Mr. Paige is a 47 year old male with past medical history of Crohn's disease status post total proctocolectomy and end ileostomy abdominal pain, presented to the hospital with abdominal pain and nausea. CT scan showed small bowel obstruction possibly related to ventral hernia near ileostomy. He was initially managed conservatively with IVF, pain management but was refractory to those measures and continued to have pain as well as radiological evidence of ongoing SBO. Surgery was consulted and recommended transfer to [facility] as they anticipate surgical complexity with his hx of multiple surgeries. He was accepted for transfer to [facility] under Dr. Islas's service. Discharge discussed with: patient - Time Spent with Patient Total time spent providing and/or coordinating discharge services: Greater than 30 minutes - Discharge Medications Home Medications: Albuterol Sulfate [Albuterol Inhaler] 0 puff IH Q4HR 12/07/16 [History] Cyanocobalamin (B-12) [Vitamin B12] 1,000 mcg IM Q15D 12/07/16 [History] Cyclobenzaprine HCl 5 mg PO BID PRN 12/07/16 [History] Ibuprofen [Motrin] 800 mg PO Q8HR PRN 12/07/16 [History] Multivitamin [One Daily Essential] 1 each PO DAILY 12/07/16 [History] Omeprazole [PriLOSEC] 40 mg PO DAILY 12/07/16 [History] Venlafaxine HCl 100 mg PO BID 12/07/17 [History] Heparin 5,000 unit SQ Q12HCO vial 12/10/17 [Rx] Ondansetron [Zofran] 4 mg IVP Q6HR PRN vial 12/10/17 [Rx] Promethazine [Phenergan] 12.5 mg IVP Q6HR PRN vial 12/10/17 [Rx] Allergies/Adverse Reactions: 3 Allergy/AdvReac Type Severity Reaction Status Date / Time Penicillins Allergy Hives Verified 12/07/16 12:14 Date of admission: 12/07/17 10:35 Primary care physician: Nelson Olivier MD Consults: 12/07/17 12:31 Consult to Nutrition [CONS] Stat Comment: Consulting Provider: NUTRITION Reason for Dietary Consult: MST Score Consult to Pastoral Services [CONS] Routine Comment: - Constitutional Vitals: Temp Pulse Resp BP Pulse Ox 97.5 F L 66 14 128/75 97 12/10/17 07:34 12/10/17 07:34 12/10/17 07:34 12/10/17 07:34 12/10/17 07:34 Exam: General: Alert and oriented HEENT:EOM, pupils equal, round, and reactive. Cardiovascular:Normal S1 & S2, no murmurs or gallops. No JVD. Pulse regular. Lungs:Normal breath sounds, no wheezes or crackles. Abdomen:Soft, RLQ tenderness around ileostomy site, no rebound or guarding. Stoma bag with small amount of watery, flent material. Extremities:No deformity, no edema or tenderness, no joint swelling. Neurological:Normal cognition and motor skills. Skin:Normal color, no rash, no lesions. Pulses:Carotid and radial pulses normal +2. Rest of the physical exam is non-contributory - Patient Status Disposition: Admitted As Inpatient Condition: Fair Functional capacity at discharge: independent ambulation Overall status at discharge: patient is not back to baseline - Discharge Instructions Instructions: Bowel Obstruction (DC) Follow Up With: Nelson Olivier MD [Primary Care Provider] - - Diet and Activity Activity: as per physical therapy Diet: other (NPO till surgery evaluation at [facility])
[2017-12-10 19:43] VITALS: BP 117/73
[2017-12-15] MEDS ORDERED: Cyanocobalamin (B-12) 1,000 MCG/ML VIAL IM SCH (09:00)
== END 2017-12-10 21:51 | disposition other institution (70) | DRG 871 ==
LOC: 3ANU 08:34 → EMEROO 08:34 → SUATTDRO 10:35 → 3ANU 11:03
PROVIDERS: ADMIT Student in an Organized Health Care Education/Training Program; ATTEND Internal Medicine